=== PATIENT | male | born 1980 | race Caucasian/White ===

== ENCOUNTER 2019-12-19 20:33 | Emergency (ER) | payer SELFPAY ==
--- NOTE | 2019-12-19 20:42 | PDOC ---
Rapid Medical Evaluation Time Seen by Provider: 12/19/19 20:37 Medical Evaluation: 12/19/19 20:38 CC: "I have blood flow problems with my heart." chest pain PE: rash to left ribs. easily distracted. Orders: ekg, Patient will proceed to ED for further evaluation. Discharge Disposition - Diagnosis Chest pain - Referrals - Patient Instructions - Post Discharge Activity
[2019-12-19 20:43] VITALS: BMI 23.6
--- NOTE | 2019-12-19 22:20 | PDOC ---
History of Present Illness - General Chief Complaint: Chest Pain Stated Complaint: CHECK UP Time Seen by Provider: 12/19/19 20:37 - History of Present Illness Initial Comments: Sam Escobedo is a 39yo man with no known medical problems who presents to the ED with several complaints. He initially stated that he had chest pain while in [place] , but he currently is reluctant to discuss the chest pain. He states only that he had "intermittent" dull chest pain for about 2 days, but he is unwilling to answer any additional questions. He says that his actual problem is that he has poor circulation in his skin, and he has a rash that does not appear to be healing. He will not state whether the rash itches or hurts. He endorses that he may have had exposure to bedbugs "[place] the city" but declines to answer where or when that occurred. Mr Escobedo states several times that he has been tested for STD's and HIV. He declines to state whether he has any recent exposures or particular concerns about these infections. He reports that he smokes "on and off" but will not answer whether he uses any drugs. He repeatedly asks for blood tests. Past History - Past Medical History Allergies/Adverse Reactions: Allergies Allergy/AdvReac Type Severity Reaction Status Date / Time Penicillins Allergy Verified 12/19/19 20:43 COPD: No Other medical history: DENIES - Immunization History Immunization Up to Date: Yes - Psycho Social/Smoking Cessation Hx Smoking History: Current some day smoker Have you smoked in the past 12 months: Yes Information on smoking cessation initiated: No Hx Alcohol Use: No Drug/Substance Use Hx: No Review of Systems - Review of Systems Comments:: General: No fevers, no chills, no weight or appetite change, no malaise HEENT: No changes in vision, no changes in hearing, no congestion, no sore throat CV: No chest pain, no palpitations, no LE edema Pulm: No SOB, no cough, no wheezing GI: No nausea or vomiting, no change in bowel habits, no melena : No frequency, no urgency, no dysuria Musc: No back pain, no joint swelling, no recent injury Skin: No rash, no lesions, no erythema Endo: No excessive thirst, no heat/cold intolerance Heme: No unusual bruising or bleeding, no swollen glands Neuro: No syncope, no numbness/tingling, no focal weakness Vasc: No claudication Psych: No recent change in mood, no SI or HI *Physical Exam - Vital Signs Last Vital Signs Temp Pulse Resp BP Pulse Ox 97.7 F 118 H 18 185/74 H 97 12/19/19 20:37 12/19/19 20:37 12/19/19 20:37 12/19/19 20:37 12/19/19 20:37 - Physical Exam General: Comfortable, no acute distress HEENT: Atraumatic, PERRL, EOMI, MMM, voice normal, normal neck ROM Cards: RRR, no murmur appreciated Pulm: Comfortable on room air, clear to auscultation bilaterally Abd: Soft, nontender, nondistended Ext: Atraumatic. No LE edema. Moves all extremities. Ambulates w/ steady gait. Vasc: Extremities WWP. Skin: Numerous diffuse round lesions c/w healing insect bites with overlying excoriations over upper extremities and torso. No purulence or drainage Neuro: A&Ox3, CN grossly intact, normal speech, motor/sensory grossly intact and symmetric Psych: Odd affect. Looses track of conversation during questions, requires constant repetition. Evasive w/ responses ED Treatment Course - LABORATORY CBC & Chemistry Diagram: 12/19/19 22:40 12/19/19 22:40 - RADIOLOGY Radiology Studies Ordered: Category Date Time Status CHEST PA & LAT [RAD] Stat Radiology 12/19/19 22:06 Ordered Medical Decision Making - Medical Decision Making 12/19/19 22:20 Sam Escobedo is a 39yo man with no known medical problems who presents to the ED with several complaints including dull chest pain, which he states was present for 2 days but has now resolved, poorly healing rash, and concerns for poor circulation. - Odd affect throughout exam - Several episodes where pt appears to lose track of the conversation, has rapid eye movements, needs questions repeated - Concerning for psychiatric disorder, possibly intoxication. However, pt noted to be hypotensive and tachycardic on arrival and reported chest pain. Will evaluate for possible ACS - Rash consistent with healing insect bites, possibly bedbugs, does not appear infected - CBC, CMP, trop, EKG, CXR 12/19/19 23:45 - Labs completed. CK elevated to 300's. Trop negative. No other concerning results - Tox pending 12/19/19 23:59 - Urine tox negative - EKG w/ HR 101, sinus rhythm, normal axis, normal intervals. No t-wave or ST changes - CXR to be completed 12/20/19 00:15 - Patient signed out to Dr Kaiser for the remainder of his ED care Discussed with Dr Haja Bird PGY2 Discharge - Discharge Information Problems reviewed: Yes Clinical Impression/Diagnosis: Chest pain - Follow up/Referral - Patient Discharge Instructions - Post Discharge Activity
--- NOTE | 2019-12-19 22:20 | PDOC ---
Attending Attestation - Resident Resident Name: Odilia Bird - ED Attending Attestation I have performed the following: I have examined & evaluated the patient, The case was reviewed & discussed with the resident, I agree w/resident's findings & plan, Exceptions are as noted - HPI HPI: 12/20/19 03:15 See resident HPI - Physicial Exam PE: 12/20/19 03:15 Agree with documented resident exam - Medical Decision Making 12/20/19 03:15 Mulitple complaints including 2 days of CP and SOB endorsed to [facility] but denies during our interview, states he feels like he just needs some sleep, complaining of diffuse pain to torso from "rash" which appears to be multiple bug bites with surrounding excoriation Distracted during interview Hypertense, tachy in triage Consider acs, arrythmia organic vs sympathomimetic toxidrome, consider px 2/2 bug bites f/u labs, ekg, cxr dispo per clinical course denies current complaints unremarkable investigations dc
[2019-12-19 22:45] LABS: BASO % 0.9 % (0-2.0); EOS % 4.8 % (0-4.5); HEMATOCRIT 43.8 % (35.4-49); HEMOGLOBIN 14.7 GM/dL (11.7-16.9); LYMPH % 30.2 % (8-40); MCH 31.8 pg (25.7-33.7); MCHC 33.5 g/dl (32.0-35.9); MEAN CELL VOLUME 94.7 fl (80-96); MEAN PLT VOLUME 8.6 fl (7.5-11.1); MONO % 10.1 % (3.8-10.2); PLATELET COUNT 221 K/MM3 (134-434); RBC 4.62 M/mm3 (4.00-5.60); RDW 14.3 % (11.9-15.9); WHITE BLOOD COUNT 6.3 K/mm3 (4.0-10.0)
[2019-12-19 23:09] LABS: ALBUMIN 4.1 g/dl (3.4-5.0); BILIRUBIN,TOTAL 0.7 mg/dL (0.2-1); BLOOD UREA NITROGEN 14.6 mg/dL (7-18); CALCIUM 9.5 mg/dL (8.5-10.1); CREATININE 0.8 mg/dL (0.55-1.3); POTASSIUM 3.8 mmol/L (3.5-5.1); TOT PROT 7.1 g/dl (6.4-8.2)
[2019-12-19 23:11] LABS: PH,URINE 5.5 (5.0-8.0); URINE APPEARANCE CLEAR; URINE BILIRUBIN NEGATIVE (NEGATIVE); URINE COLOR YELLOW; URINE GLUCOSE (UA) NEGATIVE (NEGATIVE); URINE KETONE NEGATIVE (NEGATIVE); URINE LEUK ESTERASE NEGATIVE (NEGATIVE); URINE NITRITE NEGATIVE (NEGATIVE); URINE PROTEIN NEGATIVE (NEGATIVE); URINE UROBILINOGEN 0.2 mg/dL (0.2-1.0)
[2019-12-19 23:43] LABS: COCAINE, UR NEGATIVE ng/ml (CUTOFF=300); METHADONE, UR NEGATIVE ng/ml (CUTOFF=300); OPIATES, URI NEGATIVE ng/ml (CUTOFF=300); PHENCYCLIDINE,URINE NEGATIVE ng/ml (CUTOFF=25); URINE AMPHETAMINES NEGATIVE ng/ml (CUTOFF=500); URINE BARBITURATES NEGATIVE ng/ml (CUTOFF=200); URINE BENZODIAZEPINES NEGATIVE ng/ml (CUTOFF=200)
--- NOTE | 2019-12-20 02:27 | PDOC ---
*Physical Exam - Vital Signs Last Vital Signs Temp Pulse Resp BP Pulse Ox 97.7 F 86 16 129/82 98 12/19/19 20:37 12/20/19 00:45 12/20/19 00:45 12/20/19 00:45 12/20/19 00:45 - Physical Exam General Appearance: Yes: Appropriately Dressed. No: Apparent Distress HEENT: positive: Normal ENT Inspection Neck: positive: Supple Respiratory/Chest: positive: Lungs Clear Cardiovascular: positive: Regular Rhythm, Regular Rate Vascular Pulses: Dorsalis-Pedis (R): 2+, Doralis-Pedis (L): 2+ Gastrointestinal/Abdominal: positive: Soft Rectal Exam: positive: deferred Lymphatic: negative: Adenopathy Musculoskeletal: positive: Normal Inspection Extremity: positive: Normal Capillary Refill, Normal Inspection Integumentary: positive: Normal Color, Dry, Warm Neurologic: positive: Normal Mood/Affect ED Treatment Course - LABORATORY CBC & Chemistry Diagram: 12/19/19 22:40 12/19/19 22:40 - ADDITIONAL ORDERS Additional order review: Laboratory Results 12/19/19 12/19/19 12/19/19 23:00 23:00 22:40 Sodium 139 Potassium 3.8 Chloride 105 Carbon Dioxide 30 Anion Gap 3 L BUN 14.6 Creatinine 0.8 Est GFR (CKD-EPI)AfAm 132.27 Est GFR (CKD-EPI)NonAf 114.12 Random Glucose 72 L Calcium 9.5 Total Bilirubin 0.7 AST 25 ALT 30 Alkaline Phosphatase 117 Creatine Kinase Creatine Kinase Index CK-MB (CK-2) Troponin I Total Protein 7.1 Albumin 4.1 Urine Color Yellow Urine Appearance Clear Urine pH 5.5 Ur Specific [place] 1.010 Urine Protein Negative Urine Glucose (UA) Negative Urine Ketones Negative Urine Blood Negative Urine Nitrite Negative Urine Bilirubin Negative Urine Urobilinogen 0.2 Ur Leukocyte Esterase Negative Opiates Screen Negative Methadone Screen Negative Barbiturate Screen Negative Phencyclidine Screen Negative Ur Amphetamines Screen Negative MDMA (Ecstasy) Screen Negative Benzodiazepines Screen Negative Cocaine Screen Negative U Marijuana (THC) Screen Negative Alcohol, Quantitative 12/19/19 12/19/19 22:40 22:40 Sodium Potassium Chloride Carbon Dioxide Anion Gap BUN Creatinine Est GFR (CKD-EPI)AfAm Est GFR (CKD-EPI)NonAf Random Glucose Calcium Total Bilirubin AST ALT Alkaline Phosphatase Creatine Kinase 451 H Creatine Kinase Index 2.1 CK-MB (CK-2) 9.6 H Troponin I < 0.02 Total Protein Albumin Urine Color Urine Appearance Urine pH Ur Specific [place] Urine Protein Urine Glucose (UA) Urine Ketones Urine Blood Urine Nitrite Urine Bilirubin Urine Urobilinogen Ur Leukocyte Esterase Opiates Screen Methadone Screen Barbiturate Screen Phencyclidine Screen Ur Amphetamines Screen MDMA (Ecstasy) Screen Benzodiazepines Screen Cocaine Screen U Marijuana (THC) Screen Alcohol, Quantitative < 3 12/19/19 22:40 RBC 4.62 MCV 94.7 MCHC 33.5 RDW 14.3 MPV 8.6 Neutrophils % 54.0 Lymphocytes % 30.2 Monocytes % 10.1 Eosinophils % 4.8 H Basophils % 0.9 Medical Decision Making - Medical Decision Making Patient signed out to me pending labs and re-evaluation. - He is currently pain free in the ED and has no complaints. - He states he is homeless and because it is cold outside he would like to stay in the ED overnight and he will leave in the morning Dispo: Home in the AM Discharge - Discharge Information Problems reviewed: Yes Clinical Impression/Diagnosis: Chest pain Qualifiers: Chest pain type: unspecified Qualified Code(s): R07.9 - Chest pain, unspecified Condition: Improved Disposition: HOME - Admission No - Follow up/Referral Referrals: [facility] [place] [Provider Group] - Patient Discharge Instructions Patient Printed Discharge Instructions: DI for Atypical Chest Pain Additional Instructions: Please schedule a follow up appointment with the We are referring you to in the next 3 to 5 days Come Back to the ER immediately with any new or worsening concerns. Print Language: [place] - Post Discharge Activity
[2019-12-20 06:09] VITALS: BP 104/65; PULSE 72; TEMP 98
--- NOTE | 2019-12-20 14:03 | EKG ---
Test Reason : Blood Pressure : / mmHG Vent. Rate : 101 BPM Atrial Rate : 101 BPM P-R Int : 176 ms QRS Dur : 090 ms QT Int : 328 ms P-R-T Axes : 063 069 054 degrees QTc Int : 425 ms SINUS TACHYCARDIA EARLY REPOLARIZATION NO PREVIOUS ECGS AVAILABLE Confirmed by CHIRAG LOPEZ MD ([id number]) on 12/20/2019 2:02:29 PM Referred By: Confirmed By:CHIRAG LOPEZ MD
== END 2019-12-20 06:00 | disposition home or self-care (01) ==
LOC: JER 20:33
DX: R07.9 Chest pain, unspecified (principal); F17.210 Nicotine dependence, cigarettes, uncomplicated; Z88.0 Allergy status to penicillin
CPT/HCPCS: 36415; 71046-TC-FY; 80053; 80307; 81003; 82550; 82553; 84484; 85025; 93005; 93010; 99284-25

== ENCOUNTER 2021-07-07 06:19 | Emergency (ER) | payer SELFPAY ==
[2021-07-07 06:28] VITALS: BP 132/82; PULSE 65; TEMP 97.8; BMI 24.3
[2021-07-07] MEDS ORDERED: SODIUM CHLORIDE 0.9% 1000 ML INFUS.BAG IV ONE (06:38)
[2021-07-07 08:12] LABS: BASO % 0.8 % (0-2.0); HEMATOCRIT 45.6 % (35.4-49); HEMOGLOBIN 15.8 GM/dL (11.7-16.9); LYMPH % 28.3 % (8-40); MCH 33.1 pg (25.7-33.7); MCHC 34.6 g/dl (32.0-35.9); MEAN CELL VOLUME 95.6 fl (80-96); MEAN PLT VOLUME 8.4 fl (7.5-11.1); MONO % 9.3 % (3.8-10.2); NEUT % 54.6 % (42.8-82.8); PLATELET COUNT 204 10^3/uL (134-434); RBC 4.77 M/mm3 (4.00-5.60); RDW 14.7 % (11.9-15.9)
[2021-07-07 08:39] LABS: ALBUMIN 4.6 g/dl (3.4-5.0); BILIRUBIN,TOTAL 0.7 mg/dL (0.2-1); CALCIUM 9.5 mg/dL (8.5-10.1); CREATININE 0.9 mg/dL (0.55-1.3); TOT PROT 8.3 g/dl (6.4-8.2)
== END 2021-07-07 08:50 | disposition home or self-care (01) ==
LOC: FER 06:19
DX: R53.83 Other fatigue (principal)
CPT/HCPCS: 36415; 80053; 85025; 99284-25

== ENCOUNTER 2022-08-22 21:15 | Emergency (ER) | payer OTHER ==
[2022-08-22 21:28] VITALS: BP 122/68; PULSE 83; RESP 16; TEMP 98.2; BMI 24.3
== END 2022-08-22 22:19 | disposition home or self-care (01) ==
LOC: FER 21:15
DX: R53.83 Other fatigue (principal)
CPT/HCPCS: 99281-25

== ENCOUNTER 2023-07-08 21:08 | Emergency (ER) | payer OTHER ==
[2023-07-08 21:35] VITALS: RESP 14; BMI 24.4
[2023-07-09 06:07] VITALS: BP 138/86; PULSE 106; TEMP 97.8
== END 2023-07-09 06:42 | disposition home or self-care (01) ==
LOC: FER 21:08
DX: F10.920 Alcohol use, unspecified with intoxication, uncomplicated (principal); R11.0 Nausea
CPT/HCPCS: 99282-25